=== PATIENT | male | born 1995 | race Caucasian/White ===

== ENCOUNTER 2018-06-03 12:08 | Emergency (ER) | payer MEDICAID ==
[2018-06-03] MEDS: IBUPROFEN 800 MG TAB PO (13:06)
== END 2018-06-03 15:22 | disposition home or self-care (01) ==
LOC: FTE 12:08
DX: M54.5 Low back pain (principal); R07.81 Pleurodynia
CPT/HCPCS: 71045; 71100; 71101-LT; 72100; 99284-25